=== PATIENT | female | born 1970 | race Caucasian/White ===

== ENCOUNTER 2018-02-05 10:33 | Day surgery (SDC) | payer OTHER ==
[2018-02-03 15:40] VITALS: BMI 39.6
--- NOTE | 2018-02-05 06:48 | P.GSHP ---
History of Present Illness H&P Date: 02/05/18 CHIEF COMPLAINT: Incisional hernia. HISTORY OF PRESENT ILLNESS: The patient is a 47-year-old female who presents with a history of swelling along the right upper abdomen. Findings were consistent with possible incisional hernia. Now she presents for further evaluation and management. PAST MEDICAL HISTORY: Please see list. PAST SURGICAL HISTORY: Please see list. MEDICATIONS: Please see list. ALLERGIES: Please see list. SOCIAL HISTORY: No illicit drug use FAMILY HISTORY: No reports of Crohn disease or ulcerative colitis. REVIEW OF ORGAN SYSTEMS: CONSTITUTIONAL: No reports of fevers or chills. GI: Denies any blood in stools or constipation. PHYSICAL EXAM: VITAL SIGNS: Stable GENERAL: Well-developed pleasant female in no acute distress. HEENT: No scleral icterus. Extraocular movements grossly intact. Moist buccal mucosa. NECK: Supple without lymphadenopathy. CHEST: Unlabored respirations. Equal bilateral excursions. CARDIOVASCULAR: Regular rate and rhythm. Distal 2+ pulses. ABDOMEN: Soft, nondistended. Tender along the right upper abdomen. Protuberant. MUSCULOSKELETAL: No clubbing, cyanosis, or edema. ASSESSMENT: 1. Incisional ventral hernia. 2. Morbid obesity, BMI 39.7. PLAN: 1. Recommend proceeding with robotic ventral hernia repair with mesh. 2. Benefits and risks of surgical intervention was discussed including possibility of open technique. 3. DVT prophylaxis. 4. Antibiotic prophylaxis. Past Medical History Past Medical History: Diabetes Mellitus, Hypertension Additional Past Medical History / Comment(s): Hx. of Migraines, states had a hx. of asthma, but no further problems. Dx. with pneumonia 2 months ago and took steroids. Hx of Interstitial Cystitis, constipation. History of Any Multi-Drug Resistant Organisms: None Reported Past Surgical History: Cholecystectomy, Hysterectomy, Orthopedic Surgery, Tonsillectomy, Tubal Ligation Additional Past Surgical History / Comment(s): Carpal Tunnel surgery Bilat., R knee surgery. Past Anesthesia/Blood Transfusion Reactions: Postoperative Nausea & Vomiting ( PONV) Smoking Status: Never smoker - Past Family History Mother Family Medical History: Cancer Additional Family Medical History / Comment(s): Skin Medications and Allergies Home Medications Medication Instructions Recorded Confirmed Type ALPRAZolam [Xanax] 0.25 mg PO DAILY PRN 02/03/18 02/03/18 History Cyclobenzaprine [Flexeril] 10 mg PO HS 02/03/18 02/03/18 History Ergocalciferol (Vitamin D2) 50,000 unit PO Q30D 02/03/18 02/03/18 History [Vitamin D2] Estradiol [Estrace Cream 0.01%] 0.5 applicator VAGINAL Q3D 02/03/18 02/03/18 History Fluticasone Nasal [place] [Flonase 1 dose EA NOSTRIL HS 02/03/18 02/03/18 History Nasal [place]] Furosemide [Lasix] 40 mg PO DAILY 02/03/18 02/03/18 History Ibuprofen [Motrin] 200 mg PO Q8HR PRN 02/03/18 02/03/18 History Insulin Glargine,Hum.rec.anlog 53 unit SQ HS 02/03/18 02/03/18 History [Basaglar Kwikpen U-100] Insulin Glulisine [Apidra] 25 unit SQ ACHS 02/03/18 02/03/18 History Linaclotide [Linzess] 145 mcg PO DAILY 02/03/18 02/03/18 History Meclizine HCl [Bonine] 25 mg PO TID 02/03/18 02/03/18 History Phenazopyridine HCl [Pyridium] 100 mg PO HS 02/03/18 02/03/18 History SUMAtriptan SUCC/NAPROXEN SOD 1 each PO DAILY PRN 02/03/18 02/03/18 History [Treximet 10-60 mg Tablet] Allergies Allergy/AdvReac Type Severity Reaction Status Date / Time cefdinir [From Omnicef] Allergy Rash/Hives Verified 02/03/18 15:13
[~2018-02-05 10:33] MED LIST: CLINDAMYCIN 900 MG in DEXTROSE 5% IN WATER 50 ML IVPB ONE; DEXAMETHASONE SOD PHOSPHATE 10 MG/ML 1 ML VIAL IV ONE; HEPARIN SODIUM,PORCINE 5,000 UNIT/ML 1 ML VIAL SQ ONE; LACTATED RINGERS 1,000 ML IV SCH; LEVOFLOXACIN 500MG-D5W PMX 500 MG in DEXTROSE/WATER 1 100ML.BAG IVPB ONE; MIDAZOLAM 2 MG/2 ML VIAL IV PRN; ONDANSETRON 4 MG/2 ML VIAL IVP ONE; SCOPOLAMINE 1.5MG/72HR PATCH TRANSDERM ONE; fentaNYL (PF) 50 MCG/ML 2 ML AMP IV PRN
[2018-02-05] MEDS ORDERED: MIDAZOLAM 2 MG/2 ML VIAL IVP ONE (11:47)
[2018-02-05 11:50] LABS: Glucose,Whole Blood 151 mg/dL (75-99)
[2018-02-05 12:08] LABS: Blood Urea Nitrogen 18 mg/dL (7-17); Potassium 4.1 mmol/L (3.5-5.1)
[2018-02-05] MEDS ORDERED: SUCCINYLCHOLINE CHLORIDE 100 MG/5 ML SYR IV ONE (13:17)
[2018-02-05] MEDS ORDERED: fentaNYL (PF) 50 MCG/ML 2 ML AMP ONE (13:17)
[2018-02-05] MEDS ORDERED: MIDAZOLAM 2 MG/2 ML VIAL ONE (13:17)
[2018-02-05] MEDS ORDERED: LIDOCAINE 1% INJ 10MG/ML (20 ML MDV) ONE (13:17)
[2018-02-05] MEDS ORDERED: NEOSTIGMINE 1 MG/ML 10 ML VIAL ONE (13:17)
[2018-02-05] MEDS ORDERED: PROPOFOL 10 MG/ML 20 ML VIAL IV ONE (13:17)
[2018-02-05] MEDS ORDERED: ROCURONIUM BROMIDE 10 MG/ML 10 ML VIAL IV ONE (13:17)
[2018-02-05] MEDS ORDERED: GLYCOPYRROLATE 0.2 MG/ML 2 ML VIAL ONE (13:17)
[2018-02-05] MEDS ORDERED: LACTATED RINGERS 1,000 ML IV ONE (14:29)
--- NOTE | 2018-02-05 14:44 | P.OP ---
Date of Procedure: 02/05/18 Description of Procedure: SURGEON: BRIGIDO NOYOLA MD CIRCULATION TENDER: ANGIE CARERNO PREOPERATIVE DIAGNOSES: 1. Right upper quadrant abdominal pain. 2. History of cholecystectomy 3. Peritoneal adhesions 4. Morbid obesity due to excess calories. 5. BMI 39.7 6. Right upper quadrant abdominal swelling 7. Hypertensive heart disease 8. Diabetes type 2, [id number] 9. History of postop nausea and vomiting POSTOPERATIVE DIAGNOSES: 1. Right upper quadrant abdominal pain. 2. History of cholecystectomy 3. Peritoneal adhesions 4. Morbid obesity due to excess calories. 5. BMI 39.7 6. Right upper quadrant abdominal swelling 7. Hypertensive heart disease 8. Diabetes type 2, [id number] 9. History of postop nausea and vomiting 10. Incarcerated right upper quadrant incisional hernia, 3 cm OPERATION: 1. Robotic-assisted da Olman Xi laparoscopic repair of incarcerated incisional hernia, 3 cm, right upper quadrant ESTIMATED BLOOD LOSS: 5 mL. COMPLICATIONS: None. OPERATIVE FINDINGS: 1. Incarcerated right upper quadrant incisional, 3 cm INDICATIONS: The patient is a 47-year-old female who presents with right upper quadrant abdominal pain and prior cholecystectomy. Surgical intervention with diagnostic laparoscopy, possible ventral hernia repair were described. Informed consent was obtained. Robotic assisted laparoscopic approach was described. Benefits and risks of the procedure including but not limited to bleeding, infection was described. Informed consent was obtained. DESCRIPTION OF PROCEDURE: Patient was brought to the operating room, placed in supine position. After general induction, the abdomen had been prepped and draped in standard sterile fashion. The robotic da Olman XI system was primed. After a timeout protocol was performed, the patient had been prepped and draped in standard sterile fashion. The robot was docked along the left lateral abdomen. The patient was repositioned in reverse Trendelenburg position. Please note prior to docking of the robot; however, a 5 mm 0 degrees laparoscopic trocar entry was performed along the left upper quadrant. Next, two 8 mm robotic ports were placed along the right lower abdomen. The camera 8-mm port was below the umbilicus. Another 8 mm port was placed along the left lower abdominal wall. Please note that the ports were placed at least 10 to 15 cm away from the target anatomy of the liver. Using a grasper for arm 1, a grasper for arm 3, including scissor for arm 4, the robotic system was docked and primed as described. Instruments were interchanged by the respiratory therapy assistant. I had sat at the console. The falciform ligament was cleaned off the peritoneum of the abdominal wall to expose the hernia of the right upper quadrant. An incarcerated incisional hernia 3 cm was identified confirming the patient's location of pain. Incarcerated intra-abdominal fat was identified and reduced. Using 2-0 VLOC 9 inch suture, the incisional hernia was reduced and oversewn at least 2 layers. The robot was undocked. All pneumoperitoneum instruments were evacuated from the abdominal cavity. The incisions were reapproximated using 4-0 Monocryl in an interrupted subcuticular fashion. Please note along the trocar sites, local anesthetic was placed as a field block prior to insertion of all instruments. Exofin was applied to the skin. At the end of the procedure needle, sponge, and instrument count had been verified correct by the mosaic technician. The patient was transferred to postanesthesia care unit in stable condition. Plan - Discharge Summary New Discharge Prescriptions: No Action Phenazopyridine HCl [Pyridium] 100 mg PO HS Furosemide [Lasix] 40 mg PO DAILY Insulin Glulisine [Apidra] 25 unit SQ ACHS Cyclobenzaprine [Flexeril] 10 mg PO HS Ibuprofen [Motrin] 200 mg PO Q8HR PRN PRN Reason: Pain Estradiol [Estrace Cream 0.01%] 0.5 applicator VAGINAL Q3D ALPRAZolam [Xanax] 0.25 mg PO DAILY PRN PRN Reason: Anxiety SUMAtriptan SUCC/NAPROXEN SOD [Treximet 10-60 mg Tablet] 1 each PO DAILY PRN PRN Reason: Migraine Headache Meclizine HCl [Bonine] 25 mg PO TID Linaclotide [Linzess] 145 mcg PO DAILY Insulin Glargine,Hum.rec.anlog [Basaglar Kwikpen U-100] 53 unit SQ HS Fluticasone Nasal [place] [Flonase Nasal [place]] 1 dose EA NOSTRIL HS Ergocalciferol (Vitamin D2) [Vitamin D2] 50,000 unit PO Q30D Metoprolol Tartrate [Lopressor] 25 mg PO ONCE Discharge Medication List ALPRAZolam [Xanax] 0.25 mg PO DAILY PRN 02/03/18 [History] Cyclobenzaprine [Flexeril] 10 mg PO HS 02/03/18 [History] Ergocalciferol (Vitamin D2) [Vitamin D2] 50,000 unit PO Q30D 02/03/18 [History] Estradiol [Estrace Cream 0.01%] 0.5 applicator VAGINAL Q3D 02/03/18 [History] Fluticasone Nasal [place] [Flonase Nasal [place]] 1 dose EA NOSTRIL HS 02/03/18 [ History] Furosemide [Lasix] 40 mg PO DAILY 02/03/18 [History] Ibuprofen [Motrin] 200 mg PO Q8HR PRN 02/03/18 [History] Insulin Glargine,Hum.rec.anlog [Basaglar Kwikpen U-100] 53 unit SQ HS 02/03/18 [ History] Insulin Glulisine [Apidra] 25 unit SQ ACHS 02/03/18 [History] Linaclotide [Linzess] 145 mcg PO DAILY 02/03/18 [History] Meclizine HCl [Bonine] 25 mg PO TID 02/03/18 [History] Phenazopyridine HCl [Pyridium] 100 mg PO HS 02/03/18 [History] SUMAtriptan SUCC/NAPROXEN SOD [Treximet 10-60 mg Tablet] 1 each PO DAILY PRN [History] Metoprolol Tartrate [Lopressor] 25 mg PO ONCE 02/05/18 [History]
[2018-02-05 15:02] VITALS: TEMP 97.3
[2018-02-05 15:07] VITALS: RESP 16
[2018-02-05 16:03] LABS: Glucose,Whole Blood 220 mg/dL (75-99)
[2018-02-05 17:46] LABS: Glucose,Whole Blood 240 mg/dL (75-99)
[2018-02-05 18:02] VITALS: BP 119/77; PULSE 97
== END 2018-02-05 17:50 | disposition home or self-care (01) ==
LOC: OR 10:33
PROVIDERS: ATTEND Surgery Plastic and Reconstructive Surgery
DX: K43.0 Incisional hernia with obstruction, without gangrene (principal); K66.0 Peritoneal adhesions (postprocedural) (postinfection); Z90.49 Acquired absence of other specified parts of digestive tract; E66.01 Morbid (severe) obesity due to excess calories; Z68.39 Body mass index [BMI] 39.0-39.9, adult; I11.9 Hypertensive heart disease without heart failure; E11.9 Type 2 diabetes mellitus without complications; F41.9 Anxiety disorder, unspecified; G43.909 Migraine, unspecified, not intractable, without status migrainosus; Z79.51 Long term (current) use of inhaled steroids; Z79.899 Other long term (current) drug therapy; Z79.4 Long term (current) use of insulin; Z88.1 Allergy status to other antibiotic agents; Z98.51 Tubal ligation status
CPT/HCPCS: 86900; 86901; 82565; 84132; 84520; 86850; 49655; J2250; J1644; J1100; J2710; J2405; J1956; J2001; J3010; J0330; J2704